=== PATIENT | female | born 1985 | race Caucasian/White ===

== ENCOUNTER → 2020-03-12 | Outpatient (CLI) | payer OTHER ==
--- NOTE | 2020-03-12 13:50 | Diagnostic Imaging Report ---
EXAM: MODIFIED BA. SWALLOW DATE: 03/12/2020 12:30 PM INDICATION: Dysphagia COMPARISON: None Fluoroscopy Time: 0.5 min. Reference Air Kerma (Ka, r): 2.28 mGy. FINDINGS: Modified barium swallow was performed by the speech pathology department. The radiologist was not present for the examination. Provided images demonstrate normal oral transit time. No subglottic tracheal aspiration is visualized. IMPRESSION: No evidence for subglottic tracheal aspiration. Please refer to speech pathology notes for further details. Signed by: Dr. Jose Francisco Bautista MD on 03/12/2020 1:47 PM
== END ==
LOC: DX 11:46
PROVIDERS: ATTEND Otolaryngology
DX: R13.13 Dysphagia, pharyngeal phase (principal); Z11.59 Encounter for screening for other viral diseases
CPT/HCPCS: 74230; 92526; 92611; U0002

== ENCOUNTER → 2020-05-07 | Day surgery (SDC) | payer OTHER ==
[~2020-05-07] MED LIST: CLARITIN-D 241 EACH PO; DYMISTA NASAL S23 GM; FENTANYL CITRATE/PF 100MCG/2 ML INJ ONE; METOCLOPRAMIDE HCL 10 MG/2ML VIAL ONE; MIDAZOLAM HCL 2 MG/2 ML VIAL ONE; MULTIVITAMINS1 EAC6 PO; PANTOPRAZOLE 40 MG 10ML VIAL ONE; PROPOFOL IV EMULSION 10 MG/ML 20 ML VIAL ONE; XANAX1 MG PO
--- NOTE | 2020-05-07 07:10 | NUR ---
SPIRITUAL CARE - Pre-Surgery Assessment: Pt in bed. Pt's at bedside. Pt reported supportive attention from family and friends. Intervention: Emergency Department Clinician provided pastoral presence, hospitality, sympathetic listening, and prayer. Acquainted pt with availability of graphic editor while hospitalized. Outcome: Pt expressed appreciation for visit. No need for follow up indicated at this time. ALLIE Hernandez Spiritual Care Department O: [phone]
[2020-05-07 09:45] VITALS: BP 107/56
--- NOTE | 2020-05-07 10:46 | Operative Report ---
DATE OF PROCEDURE: 05/07/2020 SURGEON: Saleem Jordan MD PROCEDURE: EGD with brushing biopsies. INDICATIONS FOR EGD: Acid reflux, heartburn, bloating. MEDICATIONS: The patient was done under MAC, please see anesthesiologist's note. PROCEDURE IN DETAIL: With the patient in left lateral decubitus position, a flexible fiberoptic Olympus gastroscope was introduced into the esophagus under direct visualization without any difficulty. There were some scattered whitish plaques noted in distal esophagus and brushings were obtained to rule out Corrine. The scope was then advanced with ease into the stomach, mucosa overlying the antrum and the body revealed some patchy erythema and [id number] edema. Biopsies were obtained, sent to stain for H. pylori. The pylorus was of normal contour and shape, it was intubated with ease and the scope was advanced all the way to the second portion of the duodenum. Biopsies were obtained from the proximal second portion and the duodenal bulb to rule out sprue. The scope was then withdrawn back into the stomach and retroflexed, mucosa overlying the fundus and cardia appeared to be within normal limits. The scope was then straightened out, it was subsequently withdrawn. The patient tolerated the procedure well. IMPRESSION: 1. Rule out Corrine esophagitis. 2. Gastritis, biopsied, biopsies sent to stain for H. pylori. 3. Rule out sprue. PLAN: 1. Follow up histology. 2. Increase omeprazole to 40 mg one p.o. a.c. b.i.d. Saleem Jordan MD [facility] [place] /[id number] cc: Dominguez Brewer MD
== END | disposition home or self-care (01) ==
LOC: OR 05:55
PROVIDERS: ATTEND Internal Medicine Gastroenterology
DX: K20.90 Esophagitis, unspecified without bleeding (principal); K29.70 Gastritis, unspecified, without bleeding; K22.8 Other specified diseases of esophagus; K21.9 Gastro-esophageal reflux disease without esophagitis; F98.8 Other specified behavioral and emotional disorders with onset usually occurring in childhood and adolescence; F41.9 Anxiety disorder, unspecified; Z01.812 Encounter for preprocedural laboratory examination; Z11.59 Encounter for screening for other viral diseases
CPT/HCPCS: 43239; 81025; C9113; J2250; J2704; J2765; J3010; U0002; 43235